=== PATIENT | female | born 1985 | race Hispanic/Latino ===

== ENCOUNTER 2017-04-02 10:47 | Outpatient (CLI) | payer OTHER ==
[2017-04-02] MEDS ORDERED: Sodium Chloride 0.9% 15 ML NEB ONE (13:18)
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
== END 2017-04-02 10:48 | disposition home or self-care (01) ==
LOC: WCC 10:47
PROVIDERS: ATTEND Family Medicine
DX: L97.129 Non-pressure chronic ulcer of left thigh with unspecified severity (principal)
CPT/HCPCS: 97602; 99203; A4218; G0463

== ENCOUNTER 2017-04-10 10:34 | Outpatient (CLI) | payer OTHER ==
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
[2017-04-10] MEDS ORDERED: Lidocaine 2% Jelly 5 ML TUBE ONE (17:15)
== END 2017-04-10 10:35 | disposition home or self-care (01) ==
LOC: WCC 10:34
PROVIDERS: ATTEND Family Medicine
DX: L97.129 Non-pressure chronic ulcer of left thigh with unspecified severity (principal)
CPT/HCPCS: 11042; 11045

== ENCOUNTER 2017-05-05 11:36 | Outpatient (CLI) | payer OTHER ==
[~2017-05-05 11:36] MED LIST: Lidocaine 2% Jelly 5 ML TUBE ONE; Sodium Chloride 0.9% 15 ML NEB ONE
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
== END 2017-05-05 11:37 | disposition home or self-care (01) ==
LOC: WCC 11:36
PROVIDERS: ATTEND Family Medicine
DX: L97.129 Non-pressure chronic ulcer of left thigh with unspecified severity (principal)
CPT/HCPCS: 11042; 11045; A4218

== ENCOUNTER 2017-05-15 12:33 | Outpatient (CLI) | payer OTHER ==
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
== END 2017-05-15 12:34 | disposition home or self-care (01) ==
LOC: WCC 12:33
PROVIDERS: ATTEND Family Medicine
DX: L97.129 Non-pressure chronic ulcer of left thigh with unspecified severity (principal)

== ENCOUNTER 2017-05-22 08:12 | Outpatient (CLI) | payer OTHER ==
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
== END 2017-05-22 08:13 | disposition home or self-care (01) ==
LOC: WCC 08:12
PROVIDERS: ATTEND Family Medicine
DX: L97.129 Non-pressure chronic ulcer of left thigh with unspecified severity (principal)
CPT/HCPCS: 87070; 87077; 87205

== ENCOUNTER 2017-05-29 10:50 | Outpatient (CLI) | payer OTHER ==
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
== END 2017-05-29 10:51 | disposition home or self-care (01) ==
LOC: WCC 10:50
PROVIDERS: ATTEND Family Medicine
DX: L97.129 Non-pressure chronic ulcer of left thigh with unspecified severity (principal)
CPT/HCPCS: 11042; 11045; 87070; 87077; 87186; 87205

== ENCOUNTER 2017-06-23 11:53 | Outpatient (CLI) | payer OTHER ==
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
[2017-06-23] MEDS ORDERED: Sodium Chloride 0.9% 15 ML NEB ONE (19:52)
== END 2017-06-23 11:54 | disposition home or self-care (01) ==
LOC: WCC 11:53
PROVIDERS: ATTEND Family Medicine
DX: L97.129 Non-pressure chronic ulcer of left thigh with unspecified severity (principal)
CPT/HCPCS: 11042; A4218